=== PATIENT | female | born 1970 | race Hispanic/Latino ===

== ENCOUNTER 2018-07-24 09:38 | Emergency (ER) | payer OTHER ==
[~2018-07-24] VITALS: Ht 157.5 cm; Wt 85.9 kg
[2018-07-24] MEDS ORDERED: HYDROCODONE/APAP 10MG-325MG TAB PO ONE (10:15)
[2018-07-24] MEDS ORDERED: HYDROCODONE/APAP 5MG-325MG TAB PO ONE (10:30)
[2018-07-24 11:10] VITALS: BP 134/78
== END 2018-07-24 11:17 | disposition home or self-care (01) ==
LOC: FSED 09:38
DX: H60.312 Diffuse otitis externa, left ear (principal)
CPT/HCPCS: 99283